=== PATIENT | female | born 1995 | race African-American/Black ===

== ENCOUNTER 2017-08-08 12:36 | Emergency (ER) | payer MEDICAID ==
[~2017-08-08] VITALS: Ht 165.1 cm; Wt 55.0 kg
[2017-08-08 13:42] VITALS: BP 116/86
[2017-08-08 15:30] LABS: BASOPHILS % 0.7 % (0.0-2.0); EOSINOPHILS % 2.5 % (0.0-5.0); HEMATOCRIT. 38.3 % (36.0-48.0); HEMOGLOBIN. 12.5 g/dL (12.0-16.0); MEAN CORPUSCULAR HEMOGLOBIN 27.4 pg (28.0-32.0); MEAN CORPUSCULAR VOLUME 84.1 fL (81.0-99.0); MEAN PLATELET VOLUME 10.4 fl (7.4-10.4); MONOCYTES % 7.6 % (2.0-8.0); NEUTROPHILS % 45.2 % (40.0-76.0); PLATELET 207 x1000/uL (130-400); RED BLOOD CELL COUNT 4.56 mill/uL (4.2-5.4); RED CELL DISTRIBUTION WIDTH 14.6 % (11.6-14.6)
== END 2017-08-08 18:22 | disposition home or self-care (01) ==
LOC: ER 15:23
DX: N93.8 Other specified abnormal uterine and vaginal bleeding (principal)
CPT/HCPCS: 36415; 81025; 99283